=== PATIENT | male | born 1950 | race Caucasian/White ===

== ENCOUNTER → 2019-08-09 | Outpatient (CLI) | payer MEDICARE, BC | LOC: COL.RAD 08:55 | DX: Z01.812 Encounter for preprocedural laboratory examination (principal); D49.6 Neoplasm of unspecified behavior of brain | CPT/HCPCS: A9585 ==

== ENCOUNTER → 2020-07-26 | Outpatient (CLI) | payer MEDICARE, OTHER | LOC: COL.RAD 09:04 | DX: Z01.812 Encounter for preprocedural laboratory examination (principal); D49.6 Neoplasm of unspecified behavior of brain | CPT/HCPCS: A9585 ==

== ENCOUNTER 2021-07-01 01:19 | Inpatient (IN) | payer MEDICARE, OTHER ==
[2021-07-01] VITALS (168 sets, daily range): BP systolic 126–153; BP diastolic 60–83; PULSE 71–80; TEMP 97.7–98.6; O2SAT 87–97
[~2021-07-01] VITALS: Ht 175.3 cm; Wt 98.2 kg
[2021-07-01 01:54] LABS: BASO % 0.2 % (0.0-2.0); EOS # 0.1 K/mm3 (0.0-0.7); EOS % 1.4 % (0-4.0); GRAN # 6.2 K/mm3 (1.4-6.5); GRAN % 76.9 % (42.2-75.2); HEMATOCRIT 42.6 % (42.0-52.0); HEMOGLOBIN 15.1 g/dl (13.5-18.0); LYMPH # 1.3 K/mm3 (1.2-3.4); LYMPH % 16.5 % (20.0-51.0); MEAN CELL VOLUME 91 fl (80.0-100.0); MEAN CORPUSCULAR HEMOGLOBIN 32 pg (27.0-31.0); MEAN CORPUSCULAR HGB CONC 35 g/dl (33.0-37.0); MEAN PLATELET VOLUME 9.2 fl (7.4-10.4); MONO # 0.4 K/mm3 (0.1-0.6); MONO % 4.8 % (1.7-9.3); PLATELET COUNT 198 K/mm3 (130-400); RED BLOOD COUNT 4.69 M/mm3 (4.20-5.60); REDCELL DISTRIBUTION WIDTH-CV 12.8 % (11.5-14.5)
[2021-07-01 02:01] LABS: INR 0.9 (0.8-3.0); PROTHROMBIN TIME 10.4 SECONDS (9.7-12.8)
[2021-07-01 02:10] LABS: ALANINE AMINOTRANSFERASE 84 U/L (0-55); ALBUMIN 3.3 gm/dL (3.4-4.8); ALKALINE PHOSPHATASE 70 U/L (40-150); ANION GAP 13 mmol/L (7-16); AST,SGOT 31 U/L (5-34); BILIRUBIN,TOTAL 0.5 mg/dL (0.2-1.2); BLOOD UREA NITROGEN 24 mg/dL (8-26); CARBON DIOXIDE 20 mmol/L (23-31); CHLORIDE 105 mmol/L (98-107); CREATININE, serum 0.84 mg/dL (0.72-1.25); GLUCOSE 163 mg/dL (70-99); POTASSIUM 4.2 mmol/L (3.5-4.5); SODIUM 138 mmol/L (136-145); TOTAL PROTEIN 6.4 gm/dL (6.2-8.1)
[2021-07-01 02:17] LABS: TROPONIN-I < 0.010 ng/mL (0.00-0.033)
[2021-07-01] MEDS ORDERED: SENNA-LAX8.6 MG PO (04:37)
[2021-07-01] MEDS ORDERED: COLACE 100100 MG/CAP PO (04:37)
--- NOTE | 2021-07-01 05:05 | NUR ---
ALERT AND OX3. PT THOMPSON FROM ER PER CART. ASSESSMENT AND HX OBTAINED BEST OF ABILITY. PT IS HARD TO UNDERSTAND SLURRED SPEECH W LEFT SIDE WEAKNESS. WILL CONSULT DR SANCHES AND SABINE THIS AM PER ORDER. WENT HOME FROM ER AND WILL BE UP THIS AM. MED REC COMPLETE. ORDERS REVIEWED. NEURO LT SIDE WEAK. AM LOVENOX GIVEN. CALL LIGHT WI REACH.
--- NOTE | 2021-07-01 06:08 | NUR ---
DR SANCHES AND DR REGALADO NOTIFIED OF CONSULTS AND PT ADMIT STATUS.
--- NOTE | 2021-07-01 08:09 | NUR ---
PT REPORTING PRESSURE IN BLADDER, BLADDER SCAN SHOWED >500, SECRETIONS AUDIBLE IN PT THROAT, SUCTIONED THICK WHITE SECRETIONS. L SIDED FACIAL DROOP, UNABLE TO MOVE L SIDE OF BODY, L LEG ELEVATED ON PILLOW, RODOLFO PRESCOTT CALLED AND NEW ORDERS FOR NPO, ST EVAL, AND HERNANDEZ CATHETER WERE PLACED. NEURO CHECK COMPLETED, ORAL MEDS HELD DUE TO NPO STATUS, CALL LIGHT WITHIN REACH, NO OTHER NEEDS
[2021-07-01 09:18] LABS: MUCOUS Present /lpf; PH 6 (5-8); SQUAMOUS EPITHELIAL None Seen /hpf; URINE APPEARANCE Clear; URINE BACTERIA None Seen /hpf; URINE BILIRUBIN Negative (NEGATIVE); URINE BLOOD Negative (NEGATIVE); URINE COLOR Yellow; URINE GLUCOSE Negative (NEGATIVE); URINE KETONE Negative (NEGATIVE); URINE LEUKOCYTE ESTERASE Negative (NEGATIVE); URINE NITRATE Negative (NEGATIVE); URINE PROTEIN(semi-quant) Negative (NEGATIVE); URINE RBC 0-2 /hpf; URINE UROBILINOGEN Negative (NEGATIVE)
[2021-07-01 09:43] LABS: COLLECTION METHOD CLEAN CATCH
--- NOTE | 2021-07-01 10:10 | NUR ---
Initial viist; Patient thanked Brim Greaser Operator for looking in on him and offering prayer and God's blessings. Brim Greaser Operator will keep Terrence in her prayers.
--- NOTE | 2021-07-01 10:26 | NUR ---
I met with after she spoke with Dr Foster and treatment team. She is still wanting to pursue transfer to a tertiary care facility. He has had a sudden decline in function since stopping the decadron,as instructed, after discharge from rehab. He was able to walk with a cane, eat regular food cut into small bites, and function at daily activities effectively with support. Family is not wanting to give up on him if there are things that can be done to help him. They are not asking for aggressive measures at this point but feel he needs to be in a facility that is more familiar with his needs. 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 Pt has very slurred speech but seems able to follow conversations--has trouble speaking. Daughter is coming to the hospital. She is a nurse in [place] and actively particpates in her father's care. Support provided to and explanation of what palliative care is--that it is focusing on quality of life in people who are experiencing very life limiting illness. While hospice rajani part of palliative care--it is not all of palliative care.
--- NOTE | 2021-07-01 11:26 | NUR ---
NEURO CHECK REMAINS THE SAME BUT SPEECH APPEARS MORE GARBLED AND HARD TO UNDERSTAND THAN PREVIOUS ASSESSMENT. DR. HOOKER AND DIAN PRESCOTT AWARE. FAMILY APPEARS DISAGREEABLE TO A BED IN [place], [place]
--- NOTE | 2021-07-01 12:11 | NUR ---
FREQUENT SUCTIONING PERFORMED ON PT. WHITE THICK MUCUS BEING COLLECTED, HAVING PT COUGH TO LOOSEN SECRETIONS.
--- NOTE | 2021-07-01 14:15 | NUR ---
CALLED CT ABOUT REPEAT IMAGING, STATED IT WOULD BE ABOUT 20MIN UNTIL THEY COULD TAKE HIM DOWN, MEDICATIONS INFUSING, SPEECH APPEARS MORE GARBLED THAN EARLIER TODAY BUT PT AOX4 AND DENIES HEADACHE. DIAN PRESCOTT NOTIFIED OF INC SLURRING OF SPEECH.
--- NOTE | 2021-07-01 16:55 | NUR ---
Polls Or Surveys Interviewer collaborated with the clinical team during rounds and patient may need to be transferred to a higher level of care or consider palliative options. SW introduced herself to patient's , Tiffany and daughter, Suzie. DOROTHY followed up with Magda Palliative RN and NASIM Shepherd and patient was declined by Carlos and JORI. Patient's family do not want transfer to a hospital out of state. Patient's family would like to see how patient responds to care this evening then meet with DOROTHY and Palliative Care tomorrow to discuss options and possibly comfort care.
--- NOTE | 2021-07-01 17:42 | NUR ---
NEURO CHECK PERFORMED, PT UPDATED ON MOVE DOWNSTAIRS TO ICU. , VERNA, CALLED AND UPDATED ABOUT PT MOVE TO ICU 6, UPDATED ON CT SCAN RESULTS, NO OTHER QUESTIONS AT THIS TIME.
--- NOTE | 2021-07-01 18:48 | NUR ---
pt transferred down to icu with pt belongings.
[2021-07-02] VITALS (716 sets, daily range): BP systolic 99–154; BP diastolic 63–79; PULSE 71–90; TEMP 96.1–97.9; O2SAT 82–99
[2021-07-02 04:58] LABS: HEMATOCRIT 44.1 % (42.0-52.0); HEMOGLOBIN 15.2 g/dl (13.5-18.0); MEAN CELL VOLUME 94 fl (80.0-100.0); MEAN CORPUSCULAR HEMOGLOBIN 32 pg (27.0-31.0); MEAN CORPUSCULAR HGB CONC 35 g/dl (33.0-37.0); PLATELET COUNT 219 K/mm3 (130-400); RED BLOOD COUNT 4.69 M/mm3 (4.20-5.60); REDCELL DISTRIBUTION WIDTH-CV 12.8 % (11.5-14.5)
[2021-07-02 05:13] LABS: CALCIUM 8.9 mg/dL (8.4-10.2); CREATININE, serum 0.78 mg/dL (0.72-1.25); POTASSIUM 4.1 mmol/L (3.5-4.5)
[2021-07-02 05:50] LABS: LYMPHOCYTE 5 % (20.0-51.0); NEUTROPHILS 91 % (42.0-75.2); PLATELET ESTIMATE NORMAL (NORMAL)
--- NOTE | 2021-07-02 05:51 | NUR ---
PT A/O X4. SPEECH REMAINS GARBLED AND DIFFICULT TO UNDERSTAND. LEFT SIDED WEAKNESS. LEFT ARM IN BRACE. NEURO CHECKS REMAIN UNCHANGED DURING SHIFT. PT HAS SLEPT WELL DURING SHIFT. VSS. PT RESTING IN BED WITH EYES CLOSED. CALL LIGHT WITHIN REACH.
--- NOTE | 2021-07-02 07:20 | NUR ---
RECEIVED REPORT FROM NASIM TAVERA. PT AROUSES EASILY WHEN RN WALKS INTO ROOM. PT ABLE TO USE SUCTION SELF AND COMMUNICATES WITH RN APPROPRIATELY. VSS. CALL LIGHT AND SUCTION WITHIN REACH. FC PATENT AND DRAINING TO GRAVITY.
--- NOTE | 2021-07-02 10:35 | NUR ---
linotype worker met with patient and spouse and per Dr Duron's request and a family meeting was arranged for today at 2:00pm. Spouse states she and a daughter will be present and their 2nd daughter will call into her cell phone for the 2:00 meeting today to discuss plan of care for patient. Worker notified patient's nurse of the above information.
--- NOTE | 2021-07-02 11:10 | NUR ---
I met at bedside with patient and his following visit with Dr Duron. The family would like to see him supported here through the weekend to see how pt will progress. Feeding tube was discussed and per pt is a last ditch effort if all else fails. His top priorities are to try to get stronger and to try to regain some of the strength that he has lost and would like to return home. Currently the both agree that returning home is not a manageable option and they are inquiring about possible rehab stay for strengthening vs short [facility] stay vs hospice support. They will talk with their daughters and will further discuss at 2pm meeting.
--- NOTE | 2021-07-02 12:40 | NUR ---
Follow up; Patient thanked Catering Administrative Assistant for praying again today for him and offering comfort and God's blessings.
--- NOTE | 2021-07-02 14:10 | NUR ---
FAMILY MEETING PERFORMED WITH RN, DR COONEY, FLOUR MIXER, LEN CHAVEZ RN, PT'S , AND PT'S DAUGHTER THOM. SEE DR OCONEY'S INSTRUCTIONS FOR CARE.
--- NOTE | 2021-07-02 14:47 | NUR ---
Family meeting with and daughter Suzie held with Dr Duron. Magda Schilling RN, Apurva, delinquency prevention social worker, and primary nurse in attendence. Family at this time would like to pursue aggressive care and to see if he is able to make progress. The family is well aware of the nature of his brain tumor/stroke but would like for him to have the opportunity to improve, gain strength, work with ST and would like to return home when he is able. Open to rehab to help facilitate this.
--- NOTE | 2021-07-02 15:16 | NUR ---
Attended family meeting with Dr. Duron, RN Magda Schilling, patient's Tiffany and his daughter Suzie. Family verbalizes that they wish to pursue aggressive measure towards the patient's care. Dr. Duron verbalizes that the plan is to keep the patient here through the weekend and reassess on Wednesday. Patient was recently released from [facility] where he spent 1.5 weeks there and was walking with a cane and eating solid food that was cut up very small. Patient's is hopeful that the patient can get back to the point of going back to [facility].
--- NOTE | 2021-07-02 19:20 | NUR ---
Received report from NAISM Euceda.
--- NOTE | 2021-07-02 21:00 | NUR ---
Patient resting quietly in bed. All vitals within normal limits. Patient is alert and oriented, although speech is garbled and difficult to understand. Denies any pain or discomfort. Currently wearing CPAP per patient request; tolerating well.
[2021-07-03] VITALS (373 sets, daily range): BP systolic 123–142; BP diastolic 53–85; PULSE 69–98; TEMP 97.3–98.3; O2SAT 89–100
[2021-07-03 04:52] LABS: HEMATOCRIT 39.2 % (42.0-52.0); HEMOGLOBIN 13.6 g/dl (13.5-18.0); MEAN CELL VOLUME 94 fl (80.0-100.0); MEAN CORPUSCULAR HEMOGLOBIN 33 pg (27.0-31.0); MEAN CORPUSCULAR HGB CONC 35 g/dl (33.0-37.0); PLATELET COUNT 198 K/mm3 (130-400); RED BLOOD COUNT 4.18 M/mm3 (4.20-5.60); REDCELL DISTRIBUTION WIDTH-CV 12.8 % (11.5-14.5)
[2021-07-03 05:10] LABS: BAND 5 % (0-10); LYMPHOCYTE 4 % (20.0-51.0); NEUTROPHILS 89 % (42.0-75.2)
[2021-07-03 05:11] LABS: CALCIUM 7.6 mg/dL (8.4-10.2); CREATININE, serum 0.71 mg/dL (0.72-1.25); POTASSIUM 3.5 mmol/L (3.5-4.5)
[2021-07-03 05:13] LABS: PLATELET ESTIMATE NORMAL (NORMAL)
--- NOTE | 2021-07-03 07:00 | NUR ---
REPORT RECEIVED FROM AUGUSTUS ROUSE. PT RESTING IN BED. VSS. WILL CONTINUE TO [facility].
--- NOTE | 2021-07-03 09:40 | NUR ---
I met with pt and his this morning at bedside. He had just finished working with PT/OT and was able to make two side steps with assistance. He remembered my name this morning. Tiffany is requesting that he be transferred to [facility] accredited stroke unit for ongoing care. They are hoping that the unit there will be able to provide more specific therapy to help him regain some of his strength with a more structured program. The more directed care in a structured setting that he can recieve is what they are asking for--not that we have not cared for him well. Support provided.
--- NOTE | 2021-07-03 10:42 | NUR ---
Follow-up visit; Patient and his Tiffany, thanked [employer] Special Education Teacher for visit and prayer this morning.
[2021-07-03 11:12] LABS: ALBUMIN 2.7 gm/dL (3.4-4.8); BILIRUBIN,TOTAL 0.5 mg/dL (0.2-1.2); TOTAL PROTEIN 5.4 gm/dL (6.2-8.1)
[2021-07-03 11:39] LABS: PHOSPHOROUS 2.1 mg/dL (2.3-4.7)
--- NOTE | 2021-07-03 12:51 | NUR ---
1230-REPORT GIVEN TO ELIUD ROUSE ALL QUESTIONS ANSWERED. 1245-THIS RN AND ELIUD RN TRANSFERED PT TO ROOM 358. PT'S VERNA UPDATED.
--- NOTE | 2021-07-03 15:14 | NUR ---
TPN initiated by this RN; Verified w/ Mildred Howard RN. Blood sugar taken before initiation = 144.
--- NOTE | 2021-07-03 23:07 | NUR ---
PT IS RESTING QUIETLY IN BED WITH LIGHTS OFF. PT IS EASILY AWAKENED, DENIES NEEDS OR PAIN @ THIS TIME. HAS PRODUCTIVE COUGH, USES YANKEUR SUCTION INDEPENDENTLY FOR SPUTUM. O2 ON @ 2L NC. SPEECH IS SLURRED. TPN ET ZOSYN IV INFUSING INTO PICC IN RIGHT ARM. RESPIRATIONS UNLABORED, CALL LIGHT WITHIN REACH.
[2021-07-04] VITALS (7 sets, daily range): BP systolic 119–153; BP diastolic 40–80; PULSE 72–86; TEMP 97.4–98.4
--- NOTE | 2021-07-04 00:04 | NUR ---
PT USES CALL LIGHT ET EXPRESSES NEED TO HAVE A BM. PT IS ASSISTED ONTO BED HELLER WITH 1 ASSIST. PT HAS A LARGE SOFT BROWN STOOL. PT IS ABLE TO ROLL SELF ET PERICARE IS COMPLETED. PT DENIES PAIN BUT REQUESTS IV ATIVAN. ATIVAN IS ADMINISTERED. PT DENIES OTHER NEEDS. BED ALARM ON, CALL LIGHT WITHIN REACH.
[2021-07-04 06:18] LABS: BASO % 0.1 % (0.0-2.0); GRAN # 8.3 K/mm3 (1.4-6.5); GRAN % 84.8 % (42.2-75.2); HEMATOCRIT 41.4 % (42.0-52.0); HEMOGLOBIN 14.4 g/dl (13.5-18.0); LYMPH # 0.7 K/mm3 (1.2-3.4); LYMPH % 7.4 % (20.0-51.0); MEAN CELL VOLUME 93 fl (80.0-100.0); MEAN CORPUSCULAR HEMOGLOBIN 32 pg (27.0-31.0); MEAN CORPUSCULAR HGB CONC 35 g/dl (33.0-37.0); MONO # 0.7 K/mm3 (0.1-0.6); MONO % 6.8 % (1.7-9.3); PLATELET COUNT 199 K/mm3 (130-400); RED BLOOD COUNT 4.47 M/mm3 (4.20-5.60); REDCELL DISTRIBUTION WIDTH-CV 12.9 % (11.5-14.5)
--- NOTE | 2021-07-04 06:23 | NUR ---
PT'S YANKEUR SUCTION HAS STOPPED WORKING. SPUTUM IN TUBING IS THICK ET GREEN. TUBING ET YANKEUR CHANGED, SUCTION BEGINS WORKING AGAIN. PT HAS BEEN SUCTIONING MOUTH INDEPENDENTLY. ORAL CARE PROVIDED FOR PT ET SWABS LEFT @ BEDSIDE FOR PT TO USE.
[2021-07-04 06:43] LABS: CALCIUM 8.2 mg/dL (8.4-10.2); CREATININE, serum 0.7 mg/dL (0.72-1.25); MAGNESIUM 2.4 mg/dL (1.6-2.6); PHOSPHOROUS 2.2 mg/dL (2.3-4.7); POTASSIUM 3.8 mmol/L (3.5-4.5)
--- NOTE | 2021-07-04 09:21 | NUR ---
Talked with pt alone this morning to follow up on how he is feeling. He is still feeling anxious about his progress but said the medication he has gotten has helped. He did talk with Tiffany,, last night about his concerns and he reiterated that they are going to keep going on this plan until Wednesday and then will re-evaluate whether to continue with current goals of care or consider changes. Support provided.
--- NOTE | 2021-07-04 09:37 | NUR ---
PT ALERT AND ORIENTED. NOTED THICK SECRETIONS, NEW YAUNKER PROVIDED FOR SUCTION. PT HAS COUGH, GREEN, THICK, LARGE SECRETIONS SUCTIONED BY PT. PT HAS COARSE LUNG SOUNDS TO AUSCULTATION. PT HAS LEFT FACIAL DROOP, LEFT GLASS EYE. RIGHT EYE ROUND, REACTIVE TO LIGHT. PT HAS LEFT WEAKNESS UNABLE TO GUIDE RAIL CLEANER HAND OR LIFT LEFT ARM. ABLE TO LIFT AND HOLD LEFT LEG. PT HAS FULL MOTION IN RIGHT ARM, CAN LIFT AND HOLD RIGHT LEG. PT HAS REDDENED HEELS, BLANCHABLE. PILLOW PLACED UNDER LEGS TO ALLEVIATE PRESSURE ON HEELS. CENTRAL LINE HAS TPN RUNNING, OTHER PORT FLUSHED WITH BLOOD RETURN NOTED. VERIFIED CORRECT TPN RATE AND FILTER. PT CALL LIGHT WITHIN REACH.
--- NOTE | 2021-07-04 13:57 | NUR ---
PT TURNED AND CATHETER CARE PROVIDED. UNSTAGEABLE ULCER NOTED ON RIGHT BUTTOCK, SKIN SURROUNDING BLANCHABLE. MEPELEX PAD PLACED TO ALLEVIATE PRESSURE. PT REPOSITIONED IN BED.
--- NOTE | 2021-07-04 15:44 | NUR ---
Field Artillery Operations Specialist collaborated with Hospitalist who advised they are working on possible transfer to [facility].
--- NOTE | 2021-07-04 16:40 | NUR ---
PT GIVEN NEW YAUNKER AND SUCTION TUBING REPLACED. CENTRAL LINE CAPS CHANGED, TPN AND NEW TUBING HUNG. PT REQUESTING BREAK NOW FROM [facility].
--- NOTE | 2021-07-04 17:30 | NUR ---
Pt continuing on plan of care. Neuro checks performed per orders, no significant changes noted this shift. Pt vital signs remained stable this shift. Pt able to suction independenlty as needed. Pt family visited today. Pt able to express needs. TPN running per orders.
[2021-07-04] MEDS ORDERED: ZOSYN 3.373.375 GM/V (18:31)
[2021-07-04] MEDS ORDERED: LEVETIRACE500 MG/100 IV (18:32)
[2021-07-04] MEDS ORDERED: DECADRON INJ4 MG/ML IJ (18:35)
[2021-07-04] MEDS ORDERED: LEXAPRO20 MG PO (18:35)
[2021-07-04] MEDS ORDERED: LIPITOR 40MG TA40 MG PO (18:35)
[2021-07-05 03:26] VITALS: BP 155/63; PULSE 81; TEMP 97.8
--- NOTE | 2021-07-05 05:22 | NUR ---
AFTER MULTIPLE VERBAL CONFIRMATIONS WITH BOTH AND PT. BOTH AND PT DO NOT WISH TO TRANSPORT TO [facility]. PER THE , THE PT AND THE FAMILY WILL HAVE A MEETING ON WEDNESDAY TO REACH A COURSE OF ACTION. THIS NIGHT PT WAS ABLE SUCTION SELF WITH BRANDEN MIRANDA WAS REPLACED ONCE SHIFT, TPN INFUSING AT 78.6 TO MARLENI PICC. ZOSYN CURRENTLY INFUSING TO MARLENI PICC. PT REMAINS APHASIC, AND WITH SPEECH DELAY. ALL NEEDS MET THIS NIGHT. CALL SHIV HOLLIDAY.
[2021-07-05 07:08] LABS: BASO % 0.2 % (0.0-2.0); EOS % 0.2 % (0-4.0); GRAN # 3.9 K/mm3 (1.4-6.5); GRAN % 75.5 % (42.2-75.2); HEMATOCRIT 43.1 % (42.0-52.0); HEMOGLOBIN 14.3 g/dl (13.5-18.0); LYMPH # 0.7 K/mm3 (1.2-3.4); LYMPH % 13.7 % (20.0-51.0); MEAN CELL VOLUME 96 fl (80.0-100.0); MEAN CORPUSCULAR HEMOGLOBIN 32 pg (27.0-31.0); MEAN CORPUSCULAR HGB CONC 33 g/dl (33.0-37.0); MEAN PLATELET VOLUME 8.8 fl (7.4-10.4); MONO # 0.5 K/mm3 (0.1-0.6); MONO % 9.2 % (1.7-9.3); PLATELET COUNT 178 K/mm3 (130-400); RED BLOOD COUNT 4.48 M/mm3 (4.20-5.60); REDCELL DISTRIBUTION WIDTH-CV 12.8 % (11.5-14.5)
--- NOTE | 2021-07-05 07:15 | NUR ---
Pt. progressing w/ plan of care. Pt. reports feelings OK this AM. Needs addressed, call light and belongings in reach.
[2021-07-05 07:19] LABS: CALCIUM 8.4 mg/dL (8.4-10.2); CREATININE, serum 0.71 mg/dL (0.72-1.25); POTASSIUM 3.7 mmol/L (3.5-4.5)
[2021-07-05 07:51] VITALS: BP 120/81; PULSE 92; TEMP 97.6
--- NOTE | 2021-07-05 09:49 | NUR ---
Pt.'s and daughter here to visit. Pt.'s and daughter expressed to this RN concerns regarding pt.'s code status and discharge planning. Dr. Foster notified on telephone. Dr. Foster notified on telephone, Dr. Foster reports he will see the patient and the family.
--- NOTE | 2021-07-05 15:16 | NUR ---
Pt. is on comfort care measures only. Supportive family at bedside throughout the day. PRN Lorazepam administered w/ good effect. Pt. remains NPO, oral care provided. Pt. repositioned and reports feeling comfortable. Call light in reach.
--- NOTE | 2021-07-05 16:00 | NUR ---
DOROTHY informed that patient and family refused to be transported to [facility] wanted to obtain hospice services at their home. DOROTHY spoke with family and patient about choices for services and patient and family chose [facility]. Docselmanation sent to agency and DOROTHY called to speak to staff. Staff informed DOROTHY that documentation would not be review for services until Wednesday07/07/2021. informed of information and stated that he would inform the family, nurse informed as well. DOROTHY will contiue to follow.
--- NOTE | 2021-07-05 22:10 | NUR ---
Patient resting in bed comfortably upon enter the room. Patient's spouse in the room. Patient appears comfortable. No acute distress noted. Encourged patient's spouse to call the nurse if patient gets agitated or having any discomfort. Patient's spouse verbalized understanding. Call light in reach. Comfort measures in place.
--- NOTE | 2021-07-06 02:04 | NUR ---
Patient has increased amount of secretions and having labored breathing. Patient very drowsy and lethargic at this time. Opens eyes briefly to verbal and tactile stimulation but very minimal verbal response. Spouse in the room tearful. Emotional support provided. PRN Morphine and Ativan given per OCT. Call light in reach. Will continue to monitor.
--- NOTE | 2021-07-06 02:44 | NUR ---
Patient found to have no audible heart sound with stethoscope for 1 full minute and no peripheral pulses to palpate at 02:25 am. Verified with NASIM Norman. supervisory air intercept controller and hospitalist GENIE Palacios informed. Removed fermin catheter. Postmortem care provided and put on a new hospital gown. Emotional support provided to spouse.
--- NOTE | 2021-07-06 06:27 | NUR ---
PICC line removed per home request. Applied pressure for 3 full minutes to stop bleeding and covered with gauze and kerlex.
--- NOTE | 2021-07-06 07:09 | NUR ---
Body released to [facility] home at 07:10 am.
== END 2021-07-06 07:30 | disposition expired | DRG 64 ==
LOC: COL.ER 01:19 → MEDICAL 02:58 → ICU 18:55 → MEDICAL 07-03 13:31
PROVIDERS: Emergency Medicine; Internal Medicine; Physician Assistant; ADMIT Internal Medicine
PROC: 02HV33Z Insertion of Infusion Device into Superior Vena Cava, Percutaneous Approach (ICD-10-PCS; principal; 2021-07-02)
PROC: 5A09357 Assistance with Respiratory Ventilation, Less than 24 Consecutive Hours, Continuous Positive Airway Pressure (ICD-10-PCS; 2021-07-03)
DX: I62.9 Nontraumatic intracranial hemorrhage, unspecified (principal); J69.0 Pneumonitis due to inhalation of food and vomit; G93.6 Cerebral edema; G81.94 Hemiplegia, unspecified affecting left nondominant side; C71.9 Malignant neoplasm of brain, unspecified; Z66 Do not resuscitate; R29.810 Facial weakness; R47.81 Slurred speech; F32.A Depression, unspecified; E78.5 Hyperlipidemia, unspecified; D31.92 Benign neoplasm of unspecified part of left eye; K59.00 Constipation, unspecified; R33.9 Retention of urine, unspecified; R13.10 Dysphagia, unspecified; R29.709 NIHSS score 9; Z87.891 Personal history of nicotine dependence; Z85.46 Personal history of malignant neoplasm of prostate; Z23 Encounter for immunization; Z51.5 Encounter for palliative care
CPT/HCPCS: 99223-AI; 99233-AI; 99239; A4217; A4314; C1751; C1892; C9113; J0610; J1100; J1650; J1815; J1953; J2060; J2270; J2543; J2720; J3411; J3475; J3480; J7030; J7131